=== PATIENT | female | born 1985 | race African-American/Black ===

== ENCOUNTER 2017-02-14 18:15 | Emergency (ER) | payer MEDICAID ==
[~2017-02-14] VITALS: Ht 170.2 cm; Wt 59.0 kg
[~2017-02-14 18:15] MED LIST: ALPRAZOLAM0.25 MG ORAL; AMOXICILLIN500 MG ORAL; AMOXICILLIN500 MG PO; ATIVAN0.5 MG ORAL; ATIVAN1 MG PO; AUGMENTIN 500M500 MG PO; BACTRIM DS TAB1 EAC1 ORAL; BACTRIM-DS1 EA ORAL; CEPHALEXIN500 MG ORAL; CORTISPORIN-TC10 M1 OT; CYCLOBENZAPRINE10 MG ORAL; DEBROX15 M1 OT; FLEXERIL5 MG ORAL; IBUPROFEN600 MG ORAL; IBUPROFEN600 MG PO; IBUPROFEN800 MG ORAL; KEFLEX500 MG ORAL; NAPROSYN500 M1 ORAL; NKM; NORCO 10-325 T1 EACH PO; NORCO 10/3251 EA ORAL; NORCO 5-325 TA1 EACH ORAL; NORCO 5-325 TA1 EACH PO; NORCO1 EA ORAL; ONDANSETRON ODT4 MG ORAL; PERIDEX 0.12% O16 OZ MT; PRILOSEC20 MG ORAL; SOMA250 MG PO; SOMA350 MG PO; VICODIN 5-5001 EACH ORAL; VICODIN ES 7.51 EACH PO; VICODIN1 TA1 ORAL; XANAX0.25 MG ORAL; XANAX2 MG ORAL; ZOFRAN ODT4 MG ORAL
[2017-02-14 18:38] VITALS: BP 128/87
[2017-02-14] MEDS ORDERED: Ketorolac 60mg Inj IM ONE (19:15)
--- NOTE | 2017-02-14 19:34 | Emergency Room Report ---
History of Present Illness General Chief Complaint: Pain Source: Patient Present Illness HPI 32 YO Female presents to the ED c/o Right -sided low back pain that shoots down the leg x 3 day(s) She reports her pain as 10 on a 10 in severity she describes that her symptoms are in character to her previous episodes of sciatica. Patient states that she has had chronic sciatica ever since she had a fracture of her coccyx. Patient states she was previously been seen by a pain management however she is having change in insurance and will not see her new pain management doctor until next week. Patient reports that she is usually prescribed soma and [place]. States she has had several spinal injections performed in the past he denies recent spinal injections this month she denies fevers, chills, changes in weight or history of neoplastic disease. Denies urinary retention, new trauma or fall. Denies numbness tingling or loss of sensation or gross motor movements of the extremities, incontinence of bowel or bladder. Denies CP, Palpitations, LOC, AMS, dizziness, Changes in Vision, Sensation, paresthesias, or a sudden severe headache. Allergies: Coded Allergies: No Known Allergies (Unverified , 12/31/11) Patient History Past Medical History: see triage record Past Surgical History: none Pertinent Family History: none Last Menstrual Period: last week Now: No Reviewed Nursing Documentation: PMH: Agreed, PSxH: Agreed Nursing Documentation-PMH Past Medical History: No History, Except For Hx Hypertension: No - Scoliosis Hx Asthma: Yes - BONE RECONSTRUCTION ON LT SIDE OF FACE Review of Systems All Other Systems: negative except mentioned in HPI Physical Exam Vital Signs Date Time Temp Pulse Resp B/P (MAP) Pulse Ox O2 Delivery O2 Flow Rate FiO2 02/14/17 18:29 97.5 86 18 128/87 99 Room Air Sp02 EP Interpretation: reviewed, normal General Appearance: no apparent distress, alert, GCS 15, non-toxic Head: normocephalic, atraumatic Eyes: bilateral eye normal inspection, bilateral eye PERRL ENT: hearing grossly normal, normal voice Neck: full range of motion Respiratory: lungs clear, normal breath sounds, speaking full sentences Cardiovascular #1: regular rate, rhythm Rectal: deferred Genitourinary: no CVA tenderness Musculoskeletal: back normal, gait/station normal, normal range of motion, tender - Right lumbar paraspinal TTP with some tightening of the musculature. no obvious deformities, or evidence of infection. Neurologic: alert, oriented x3, responsive, motor strength/tone normal, sensory intact, normal gait, speech normal Skin: normal color, no rash, warm/dry, well hydrated Medical Decision Making PA Attestation Dr. Davidson is my supervising Physician whom patient management has been discussed with. Diagnostic Impression: Primary Impression: Back pain with sciatica ER Course Pt. presents to the ED c/o Right -sided low back pain that shoots down the leg x 3 day(s) Ddx considered but are not limited to Fracture, dislocation, contusion, epidural abscess, Sprain/Strain/Spasm Vital signs: are WNL, pt. is afebrile H&PE are most consistent with sciatica- Secondary to chronic condition with no change in previous sciatica symptoms. No evidence of infection, ambulatory with steady gait and no neurological deficits ORDERS: X-ray not required at this time, no spinous process tenderness ED INTERVENTIONS: IM Toradol 20mg. -Soma PO -I discussed with the patient that I will treat her pain during the visit here in the emergency department however I do not provide refills for controlled substances and that she would need to contact either her primary care doctor or her previous pain management doctor to facilitate medication refill 2 tight her over until her in next appointment. The patient I will give her a standard of care muscle relaxer and Tylenol as she declined Motrin. The discussed the patient I will also give her some lidocaine patches. DISCHARGE: At this time pt. is stable for d/c to home. Will provide printed patient care instructions, and any necessary prescriptions. Care plan and follow up instructions have been discussed with the patient prior to discharge. Last Vital Signs Date Time Temp Pulse Resp B/P (MAP) Pulse Ox O2 Delivery O2 Flow Rate FiO2 02/14/17 18:38 97.5 18 128/87 99 Room Air 02/14/17 18:29 86 Disposition: HOME, SELF-CARE Condition: Stable Scripts Acetaminophen* (TYLENOL EXTRA STRENGTH*) 500 Mg Tablet 500 MG ORAL Q6H, #20 TAB 0 Refills Prov: Vicki Beaulieu 02/14/17 Lidocaine (Lidoderm) 1 Each Adh..patch 1 PATCH TOPIC DAILY, #20 PATCH 0 Refills Patch(es) may remain in place for up to 12 hours in any 24-hour period. Prov: Vicki Beaulieu 02/14/17 Methocarbamol* (ROBAXIN-750*) 750 Mg Tablet 750 MG PO QID, #30 TAB 0 Refills Prov: Vicki Beaulieu 02/14/17 Patient Instructions: Chronic Back Pain, Sciatica, [id number] Additional Instructions: Take medications as directed. Follow up with a Primary Care Provider or Pain management Provider in 3 days , even if your symptoms have resolved. Return sooner to ED if new symptoms occur, or current symptoms become worse. Do not drink alcohol, drive, or operate heavy machinery while taking Robaxin ( Muscle Relaxer) as this may cause drowsiness. - Please note that this Emergency Department Report was dictated using [employer] operator technology software, occasionally this can lead to erroneous entry secondary to interpretation by the dictation equipment. Vicki Beaulieu Feb 14, 2017 19:34
[2017-02-14] MEDS ORDERED: ROBAXIN-750750 MG PO (19:44)
[2017-02-14] MEDS ORDERED: LIDODERM700 M1 TOPIC (19:44)
[2017-02-14] MEDS ORDERED: TYLENOL EXTRA500 MG ORAL (19:44)
[2017-02-14 21:04] VITALS: BP 128/87
== END 2017-02-14 20:00 | disposition home or self-care (01) ==
LOC: EMR 18:45
DX: M54.41 Lumbago with sciatica, right side (principal)
CPT/HCPCS: 96372; 99284

== ENCOUNTER 2017-06-09 19:59 | Emergency (ER) | payer MEDICAID ==
[~2017-06-09] VITALS: Ht 170.2 cm; Wt 61.2 kg
[~2017-06-09 19:59] MED LIST changes: +LIDODERM700 M1 TOPIC; +ROBAXIN-750750 MG PO; +TYLENOL EXTRA500 MG ORAL
[2017-06-09] MEDS ORDERED: LATUDA80 MG PO (20:33)
[2017-06-09] MEDS ORDERED: NORCO 10-325 T1 EACH ORAL (20:33)
[2017-06-09] MEDS ORDERED: XANAX2 MG ORAL (20:33)
[2017-06-09] MEDS ORDERED: LITHIUM CARBON300 MG ORAL (20:33)
[2017-06-09 20:36] VITALS: BP 116/72
[2017-06-09] MEDS: ALPRAZolam 0.5mg tab ORAL ONE (21:17)
[2017-06-09 21:20] VITALS: BP 116/72
--- NOTE | 2017-06-09 23:13 | Emergency Room Report ---
History of Present Illness General Chief Complaint: Medication Refill Source: Patient Present Illness HPI Patient is a 32-year-old female who presented after increased anxiety. Patient states that she prior history of anxiety as well as a psychiatric disease. Patient states that she takes Xanax for anxiety but had run out of her medications. Patient states her psychiatrist is out of town. She denies any fever. She reports having some vague hallucinations but denies any suicidal thoughts or thoughts of hurting others. She reports having improvement her anxiety while waiting in the emergency department. Allergies: Coded Allergies: No Known Allergies (Unverified , 12/31/11) Patient History Last Menstrual Period: 04/27/17 Reviewed Nursing Documentation: PMH: Agreed; PSxH: Agreed Nursing Documentation-PMH Past Medical History: No History, Except For Hx Hypertension: No - Scoliosis Hx Asthma: Yes - BONE RECONSTRUCTION ON LT SIDE OF FACE Review of Systems All Other Systems: negative except mentioned in HPI Physical Exam Vital Signs Date Time Temp Pulse Resp B/P (MAP) Pulse Ox O2 Delivery O2 Flow Rate FiO2 06/09/17 20:27 98.7 66 16 116/72 98 Room Air 98.8 General Appearance: well appearing, no apparent distress, alert, GCS 15 Head: normocephalic, atraumatic ENT: hearing grossly normal, normal voice Neck: full range of motion, supple Respiratory: no respiratory distress, speaking full sentences Gastrointestinal: normal inspection, soft Musculoskeletal: normal inspection, no calf tenderness Neurologic: normal inspection, alert, oriented x3, normal gait Psychiatric: mood/affect normal Skin: no rash Medical Decision Making Diagnostic Impression: Primary Impression: Anxiety ER Course Patient presented for palpitations. The differential diagnosis included was not limited to arrhythmia, thyroid storm, sepsis, anemia, myocardial infarction , alcohol withdrawal, stimulant abuse, caffeine overdose among others. Patient has a benign exam and does not appear to require any further imaging or laboratory testing at this time. The [employer] database was reviewed for the patient 's prior prescription history. The patient was noted to have the previous prescription from [facility] database for Xanax 1 mg. She should have adequate dosage of her anxiety medication at this time. The patient given outpatient [facility] referral. patient is advised to return if she began having increased suicidal thoughts or other concerns. Last Vital Signs Date Time Temp Pulse Resp B/P (MAP) Pulse Ox O2 Delivery O2 Flow Rate FiO2 06/09/17 21:20 98.8 66 16 116/72 98 Room Air 98.8 Status: improved Disposition: HOME, SELF-CARE Condition: Stable Patient Instructions: Panic Attacks Cortes Savage Jun 09, 2017 23:12
== END 2017-06-09 21:20 | disposition home or self-care (01) ==
LOC: EMR 20:45
DX: F41.9 Anxiety disorder, unspecified (principal); J45.909 Unspecified asthma, uncomplicated
CPT/HCPCS: 99282

== ENCOUNTER 2017-09-28 21:28 | Emergency (ER) | payer MEDICAID ==
[~2017-09-28] VITALS: Ht 170.2 cm; Wt 56.7 kg
[~2017-09-28 21:28] MED LIST changes: +LATUDA80 MG PO; +LITHIUM CARBON300 MG ORAL; +NORCO 10-325 T1 EACH ORAL
[2017-09-28 21:30] VITALS: BP 104/63
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
== END 2017-09-28 21:30 | disposition left against medical advice (07) ==
LOC: EDUNIT# 21:28 → EDBD 21:28 → EMR 21:30
DX: M54.9 Dorsalgia, unspecified (principal); Z53.21 Procedure and treatment not carried out due to patient leaving prior to being seen by health care provider
CPT/HCPCS: 99281

== ENCOUNTER 2018-09-08 20:18 | Emergency (ER) | payer MEDICAID ==
[~2018-09-08] VITALS: Ht 170.2 cm; Wt 59.0 kg
[2018-09-08 20:30] VITALS: BP 128/63
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
[2018-09-08] MEDS ORDERED: Tetanus/Diptheria/Pertussis IM ONE (20:45)
[2018-09-08] MEDS ORDERED: Augmentin 875mg Tab ORAL ONE (20:45)
[2018-09-08] MEDS ORDERED: Tylenol #3 tab (300mg/30mg) ORAL ONE (20:45)
--- NOTE | 2018-09-08 21:06 | NUR ---
ED Nurse Note: Meds given as ordered.
--- NOTE | 2018-09-08 21:08 | NUR ---
[facility] is here.
[2018-09-08] MEDS ORDERED: Lidocaine 1% 10mg/ml/EPI 0.01mg/ml 20ml INJ ONE (21:15)
[2018-09-08] MEDS ORDERED: Bacitracin Oint UD TOPIC ONE (21:54)
--- NOTE | 2018-09-08 22:00 | NUR ---
Face sheet faxed to [facility] after spoke with transfer center.
--- NOTE | 2018-09-08 22:02 | NUR ---
ED Nurse Note: X-ray done at bed side.
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
--- NOTE | 2018-09-08 22:59 | NUR ---
ED Nurse Note: Report given to Nadya/RN.
[2018-09-08] MEDS ORDERED: HYDROcodone/Acetamin 10/325 tab ORAL ONE (23:00)
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
[2018-09-09 00:25] VITALS: BP 108/67
--- NOTE | 2018-09-09 00:25 | NUR ---
TRANSFER TO [facility]: Patient transferred to [facility]/ room 7121# as ordered . Report given to Nadya/HAWA. Belongings sent with EMS/ Patient. Accompanied by her boyfriend/Patrick , .
== END 2018-09-09 00:25 | disposition short-term general hospital (02) ==
LOC: EMR 20:42
DX: S61.412A Laceration without foreign body of left hand, initial encounter (principal); Z23 Encounter for immunization; M41.9 Scoliosis, unspecified; X99.1XXA Assault by knife, initial encounter; Y92.9 Unspecified place or not applicable
CPT/HCPCS: 13131; 29130; 73130; 90471; 90715; 99283; Z7502

== ENCOUNTER 2019-08-08 18:12 | Emergency (ER) | payer MEDICAID, OTHER ==
[~2019-08-08] VITALS: Ht 170.2 cm; Wt 69.4 kg
[2019-08-08 18:43] VITALS: BP 103/67
[2019-08-08] MEDS ORDERED: HYDROcodone/Acetamin 5/325 tab ORAL ONE (18:45)
[2019-08-08 19:12] VITALS: BP 122/76
[2019-08-08] MEDS ORDERED: PERCOCET 5-3251 EACH ORAL (19:22)
[2019-08-08 19:24] VITALS: BP 122/76
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
--- NOTE | 2019-08-09 09:10 | Diagnostic Imaging Report ---
EXAM: ULTRASOUND Venous Duplex Scan [place] Leg CLINICAL HISTORY: Leg pain and edema. COMPARISON: None TECHNIQUE: Doppler examination include grayscale images obtained with and without compression, and color and spectral doppler analysis. FINDINGS: Doppler examination shows normal spontaneity, phasicity, compressibility in the bilateral lower extremities. There is no thrombus identified by grayscale. Normal color and spectral flow is identified. There is no evidence of valvular incompetency or insufficiency. IMPRESSION: UNREMARKABLE VENOUS DUPLEX.
== END 2019-08-08 19:24 | disposition home or self-care (01) ==
LOC: EMR 18:55
DX: G89.29 Other chronic pain (principal); M79.605 Pain in left leg; M79.604 Pain in right leg; M41.9 Scoliosis, unspecified
CPT/HCPCS: 93970; Z7502; 99284

== ENCOUNTER 2020-03-05 19:12 | Emergency (ER) | payer MEDICAID, OTHER ==
[~2020-03-05] VITALS: Ht 167.6 cm; Wt 65.8 kg
[~2020-03-05 19:12] MED LIST changes: +PERCOCET 5-3251 EACH ORAL
[2020-03-05 19:18] VITALS: BP 113/71
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
[2020-03-05 19:41] LABS: APPEARANCE,URINE SLIGHTLY CLOUDY; BILIRUBIN, URINE NEGATIVE (NEGATIVE); COLOR,URINE AMBER; GLUCOSE, URINE (UA) NEGATIVE (NEGATIVE); KETONES,URINE 1+ (NEGATIVE); LEUKOCYTE ESTERASE ,URINE 3+ (NEGATIVE); NITRITE,URINE NEGATIVE (NEGATIVE); PH,URINE 5 (4.5-8.0); PROTEIN,URINE 2+ (NEGATIVE); UROBILINOGEN,URINE 1 MG/DL (0.0-1.0)
[2020-03-05 20:19] LABS: BASOPHILS % (AUTO) 1.9 % (0.0-2.0); EOSINOPHILS % (AUTO) 3.1 % (0.0-3.0); HEMATOCRIT 36.6 % (37.0-47.0); HEMOGLOBIN 13.1 G/DL (12.0-16.0); LYMPHOCYTES % (AUTO) 30.6 % (20.0-45.0); MEAN CORPUSCULAR VOLUME 90 FL (80-99); MONOCYTES % (AUTO) 8.5 % (1.0-10.0); PLATELET COUNT 319 K/UL (150-450); RED BLOOD COUNT 4.09 M/UL (4.20-5.40); RED CELL DISTRIBUTION WIDTH 14.5 % (11.6-14.8); WHITE BLOOD COUNT 5.8 K/UL (4.8-10.8)
[2020-03-05 20:20] LABS: ANION GAP 8 mmol/L (5-15); BLOOD UREA NITROGEN 13 mg/dL (7-18); CALCIUM 9.1 MG/DL (8.5-10.1); CARBON DIOXIDE 25 MMOL/L (21-32); CHLORIDE 103 MMOL/L (98-107); CREATININE 0.7 MG/DL (0.55-1.30); POTASSIUM 3.8 MMOL/L (3.5-5.1); SODIUM 136 MMOL/L (136-145)
[2020-03-05 20:25] LABS: ALANINE AMINOTRANSFERASE 22 U/L (12-78); ALBUMIN 3.8 G/DL (3.4-5.0); ALKALINE PHOSPHATASE 72 U/L (46-116); ASPARTATE AMINO TRANSFERASE 23 U/L (15-37); BILIRUBIN,TOTAL 0.4 MG/DL (0.2-1.0)
--- NOTE | 2020-03-05 20:26 | Emergency Room Report ---
History of Present Illness General Chief Complaint: Vaginal Source: Patient, Medical Record Present Illness HPI This patient states that she would like test. She also has chronic pain in her lower legs and has had some swelling in both ankles. She denies recent illness. She denies pain. She has no other complaints. 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 COVID-19 Screening: Negative COVID-19 COVID-19 Testing Source: [employer] Patient History Past Medical History: see triage record, asthma, other - Chronic pain Social History: Reports: drug use; Denies: smoking, alcohol use Now: No - 2 weeks ago Reviewed Nursing Documentation: PMH: Agreed; PSxH: Agreed Nursing Documentation-PMH Past Medical History: No History, Except For Hx Hypertension: No - Scoliosis Hx Asthma: Yes - BONE RECONSTRUCTION ON LT SIDE OF FACE Review of Systems All Other Systems: negative except mentioned in HPI Physical Exam Vital Signs Date Time Temp Pulse Resp B/P (MAP) Pulse Ox O2 Delivery O2 Flow Rate FiO2 03/05/20 19:17 98.2 92 20 113/71 (85) 98 Room Air Sp02 EP Interpretation: reviewed, normal General Appearance: no apparent distress, alert, GCS 15, non-toxic Head: normocephalic, atraumatic Eyes: bilateral eye normal inspection, bilateral eye PERRL ENT: hearing grossly normal, normal pharynx, no angioedema, normal voice Neck: normal inspection, full range of motion Respiratory: no respiratory distress, no retraction, no accessory muscle use, speaking full sentences Cardiovascular #1: regular rate, rhythm, no edema Gastrointestinal: normal bowel sounds, non tender, soft, non-distended, no guarding, no rebound Rectal: deferred Musculoskeletal: back normal, normal range of motion, gait/station normal, non- tender Neurologic: alert, motor strength/tone normal, oriented x3, sensory intact, responsive, speech normal Psychiatric: judgement/insight normal, memory normal, mood/affect normal, no suicidal/homicidal ideation Skin: other - old scarring on BLE c/w fasciotomy Medical Decision Making Diagnostic Impression: Primary Impression: UTI (urinary tract infection) ER Course This patient has known to [facility]. She has chronic pain. The patient was sleepy here in the emergency department. She is primarily requesting a test. Overall, the patient's evaluation is benign. She is found to have a urinary tract infection on urinalysis. I suspect she may also have a sexually transmitted infection. Therefore, I did treat her as STI with Rocephin IM and azithromycin orally. I will also give her a course of oral antibiotics for a normal urinary tract infection. No further evaluation indicated. Laboratory work-up and tests are unremarkable. The patient does not have any significant swelling of her lower extremities. She was instructed to follow-up with her primary care physician. She is given return precautions and follow-up instructions. Laboratory Tests Test 03/05/20 19:27 03/05/20 19:45 Urine Color [place] Urine Appearance Slightly cloudy Urine pH 5 (4.5-8.0) Urine Specific [place] 1.025 (1.005-1.035) Urine Protein 2+ (NEGATIVE) H Urine Glucose (UA) Negative (NEGATIVE) Urine Ketones 1+ (NEGATIVE) H Urine Blood 5+ (NEGATIVE) H Urine Nitrite Negative (NEGATIVE) Urine Bilirubin Negative (NEGATIVE) Urine Ictotest Negative (NEGATIVE) Urine Urobilinogen 1 MG/DL (0.0-1.0) H Urine Leukocyte Esterase 3+ (NEGATIVE) H Urine RBC 20-30 /HPF (0 - 2) H Urine WBC Tntc /HPF (0 - 2) H Urine Squamous Epithelial Cells Moderate /LPF (NONE/OCC) H Urine Calcium Oxalate Crystals Moderate /LPF (NONE) Urine Bacteria Many /HPF (NONE) H Urine HCG, Qualitative Negative (NEGATIVE) White Blood Count 5.8 K/UL (4.8-10.8) Red Blood Count 4.09 M/UL (4.20-5.40) L Hemoglobin 13.1 G/DL (12.0-16.0) Hematocrit 36.6 % (37.0-47.0) L Mean Corpuscular Volume 90 FL (80-99) Mean Corpuscular Hemoglobin 32.0 PG (27.0-31.0) H Mean Corpuscular Hemoglobin Concent 35.7 G/DL (32.0-36.0) Red Cell Distribution Width 14.5 % (11.6-14.8) Platelet Count 319 K/UL (150-450) Mean Platelet Volume 5.1 FL (6.5-10.1) L Neutrophils (%) (Auto) 56.0 % (45.0-75.0) Lymphocytes (%) (Auto) 30.6 % (20.0-45.0) Monocytes (%) (Auto) 8.5 % (1.0-10.0) Eosinophils (%) (Auto) 3.1 % (0.0-3.0) H Basophils (%) (Auto) 1.9 % (0.0-2.0) Sodium Level 136 MMOL/L (136-145) Potassium Level 3.8 MMOL/L (3.5-5.1) Chloride Level 103 MMOL/L (98-107) Carbon Dioxide Level 25 MMOL/L (21-32) Anion Gap 8 mmol/L (5-15) Blood Urea Nitrogen 13 mg/dL (7-18) Creatinine 0.7 MG/DL (0.55-1.30) Estimated Glomerular Filtration Rate > 60 mL/min (>60) Glucose Level 100 MG/DL (74-106) Calcium Level 9.1 MG/DL (8.5-10.1) Total Bilirubin 0.4 MG/DL (0.2-1.0) Aspartate Amino Transferase (AST) 23 U/L (15-37) Alanine Aminotransferase (ALT) 22 U/L (12-78) Alkaline Phosphatase 72 U/L (46-116) Total Protein 7.6 G/DL (6.4-8.2) Albumin 3.8 G/DL (3.4-5.0) Globulin 3.8 g/dL Albumin/Globulin Ratio 1.0 (1.0-2.7) Human Chorionic Gonadotropin, Quant 1 mIU/mL (1-6) Laboratory Tests Test 03/05/20 19:27 03/05/20 19:45 Urine Color [place] Urine Appearance Slightly cloudy Urine pH 5 (4.5-8.0) Urine Specific [place] 1.025 (1.005-1.035) Urine Protein 2+ (NEGATIVE) H Urine Glucose (UA) Negative (NEGATIVE) Urine Ketones 1+ (NEGATIVE) H Urine Blood 5+ (NEGATIVE) H Urine Nitrite Negative (NEGATIVE) Urine Bilirubin Negative (NEGATIVE) Urine Ictotest Negative (NEGATIVE) Urine Urobilinogen 1 MG/DL (0.0-1.0) H Urine Leukocyte Esterase 3+ (NEGATIVE) H Urine RBC 20-30 /HPF (0 - 2) H Urine WBC Tntc /HPF (0 - 2) H Urine Squamous Epithelial Cells Moderate /LPF (NONE/OCC) H Urine Calcium Oxalate Crystals Moderate /LPF (NONE) Urine Bacteria Many /HPF (NONE) H Urine HCG, Qualitative Negative (NEGATIVE) White Blood Count 5.8 K/UL (4.8-10.8) Red Blood Count 4.09 M/UL (4.20-5.40) L Hemoglobin 13.1 G/DL (12.0-16.0) Hematocrit 36.6 % (37.0-47.0) L Mean Corpuscular Volume 90 FL (80-99) Mean Corpuscular Hemoglobin 32.0 PG (27.0-31.0) H Mean Corpuscular Hemoglobin Concent 35.7 G/DL (32.0-36.0) Red Cell Distribution Width 14.5 % (11.6-14.8) Platelet Count 319 K/UL (150-450) Mean Platelet Volume 5.1 FL (6.5-10.1) L Neutrophils (%) (Auto) 56.0 % (45.0-75.0) Lymphocytes (%) (Auto) 30.6 % (20.0-45.0) Monocytes (%) (Auto) 8.5 % (1.0-10.0) Eosinophils (%) (Auto) 3.1 % (0.0-3.0) H Basophils (%) (Auto) 1.9 % (0.0-2.0) Sodium Level 136 MMOL/L (136-145) Potassium Level 3.8 MMOL/L (3.5-5.1) Chloride Level 103 MMOL/L (98-107) Carbon Dioxide Level 25 MMOL/L (21-32) Anion Gap 8 mmol/L (5-15) Blood Urea Nitrogen 13 mg/dL (7-18) Creatinine 0.7 MG/DL (0.55-1.30) Estimated Glomerular Filtration Rate > 60 mL/min (>60) Glucose Level 100 MG/DL (74-106) Calcium Level 9.1 MG/DL (8.5-10.1) Total Bilirubin Pending Aspartate Amino Transferase (AST) Pending Alanine Aminotransferase (ALT) Pending Alkaline Phosphatase Pending Total Protein Pending Albumin Pending Globulin Pending Human Chorionic Gonadotropin, Quant Pending Last Vital Signs Date Time Temp Pulse Resp B/P (MAP) Pulse Ox O2 Delivery O2 Flow Rate FiO2 03/05/20 19:18 98.2 92 20 113/71 98 Room Air Status: improved Disposition: HOME, SELF-CARE Condition: Improved Scripts Nitrofurantoin Monohyd/M-Cryst* (MACROBID 100 MG*) 100 Mg Capsule 100 MG ORAL EVERY 12 HOURS for 7 Days, #14 CAP Prov: Sushma Lara DO 03/05/20 Sushma Lara DO Mar 05, 2020 20:26
[2020-03-05] MEDS ORDERED: NITROFURANTOIN100 M2 ORAL (20:28)
[2020-03-05] MEDS ORDERED: Azithromycin 250mg tab ORAL ONE (20:30)
[2020-03-05] MEDS ORDERED: Lidocaine 1% MPF 10mg/ml 5ml INJ ONE (20:30)
[2020-03-05 20:37] VITALS: BP 113/71
--- NOTE | 2020-03-05 20:37 | NUR ---
ED Nurse Note: Pt cleared by ERMD for discharge. DC instructions was given and explained to pt and verbalized understanding of teachings. /prescription sent to the pharmacy of choice. All medical deviecs such as ID band removed. Pt is AAO x4, ambulatory and left with all personal belongings.
== END 2020-03-05 20:37 | disposition home or self-care (01) ==
LOC: EMR 19:45
DX: N39.0 Urinary tract infection, site not specified (principal); J45.909 Unspecified asthma, uncomplicated
CPT/HCPCS: 36415; 80053; 81003; 81025; 84702; 85025; 87086; 96372; J0696; Q0144; Z7502; 99284

== ENCOUNTER 2020-04-28 16:50 | Emergency (ER) | payer OTHER ==
[~2020-04-28] VITALS: Ht 170.2 cm; Wt 59.0 kg
[~2020-04-28 16:50] MED LIST changes: +NITROFURANTOIN100 M2 ORAL
--- NOTE | 2020-04-28 17:02 | NUR ---
ED Nurse Note: PT WALKED INTO ED FOR UPPER LIP SUTURE REMOVAL. SHE GOT SUTURES PLACED 2 WEEKS AGO FOR INJURY WHERE POLE FELL ONTO LIP. SHE IS ALERT AND ORIENTEDX4, AMBULATORY. SITE IS [facility].
[2020-04-28 17:03] VITALS: BP 117/65
--- NOTE | 2020-04-28 17:15 | NUR ---
ED Nurse Note:stitches were removed from upper lip
--- NOTE | 2020-04-28 17:18 | Emergency Room Report ---
History of Present Illness General Chief Complaint: Wound Recheck/Suture Removal Source: Patient Present Illness HPI The patient had a lip laceration repair at [facility] 2 weeks ago. She presents today for suture removal. She has no complaints. She has no pain or concerns. 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 Patient History Past Medical History: see triage record, asthma, psych hx Past Surgical History: other - Facial reconstruction Social History: Denies: smoking, alcohol use, drug use Last Menstrual Period: 04/28 Now: No Reviewed Nursing Documentation: PMH: Agreed; PSxH: Agreed Nursing Documentation-PMH Past Medical History: No History, Except For Hx Hypertension: No - Scoliosis Hx Asthma: Yes - BONE RECONSTRUCTION ON LT SIDE OF FACE Review of Systems All Other Systems: negative except mentioned in HPI Physical Exam Vital Signs Date Time Temp Pulse Resp B/P (MAP) Pulse Ox O2 Delivery O2 Flow Rate FiO2 04/28/20 16:58 98.1 91 18 120/69 (86) 95 Room Air Sp02 EP Interpretation: reviewed, normal General Appearance: no apparent distress, alert, GCS 15, non-toxic Head: normocephalic, other - healing upper lip laceration. prolene sutures, some disloged. good wound healing and approximation. Eyes: bilateral eye normal inspection, bilateral eye PERRL ENT: hearing grossly normal, normal pharynx, no angioedema, normal voice Neck: normal inspection, full range of motion Respiratory: normal inspection, no respiratory distress, no retraction, no accessory muscle use, speaking full sentences Rectal: deferred Musculoskeletal: gait/station normal, non-tender Neurologic: alert, motor strength/tone normal, oriented x3, sensory intact, responsive, speech normal Psychiatric: judgement/insight normal, memory normal, mood/affect normal, no suicidal/homicidal ideation Skin: no rash, normal color Medical Decision Making Diagnostic Impression: Primary Impression: Encounter for removal of sutures Additional Impression: Encounter for wound re-check ER Course The patient's lip laceration is healing well with good wound approximation. There is no evidence of infection. The sutures were removed without complication or incident. The patient is given close return precautions and follow-up instructions. Last Vital Signs Date Time Temp Pulse Resp B/P (MAP) Pulse Ox O2 Delivery O2 Flow Rate FiO2 04/28/20 17:03 98.1 76 20 117/65 97 Room Air Status: improved Disposition: HOME, SELF-CARE Condition: Improved Patient Instructions: Wound Check Sushma Lara DO Apr 28, 2020 17:18
== END 2020-04-28 17:45 | disposition home or self-care (01) ==
LOC: EMR 17:20
DX: Z48.02 Encounter for removal of sutures (principal); S01.511D Laceration without foreign body of lip, subsequent encounter; X58.XXXD Exposure to other specified factors, subsequent encounter; M41.9 Scoliosis, unspecified
CPT/HCPCS: 99281